=== PATIENT | female | born 1965 | race Caucasian/White ===

== ENCOUNTER 2021-09-04 13:34 | Emergency (ER) | payer SELFPAY ==
[~2021-09-04] VITALS: Ht 165.1 cm; Wt 71.4 kg
[2021-09-04 14:11] VITALS: BP 150/89
[2021-09-04] MEDS ORDERED: ACETAMINOPHEN EXTRA STRENGTH 500 MG TAB PO ONE (16:00)
[2021-09-04] MEDS ORDERED: DICYCLOMINE HCL LIQUID 20 MG, ALUMINUM HYD/MAG/SIMETHICONE 30 ML, LIDOCAINE VISCOUS 2% ... PO ONE ×3 (16:00)
[2021-09-04] MEDS ORDERED: ONDANSETRON 4 MG ODT PO ONE (16:00)
[2021-09-04] MEDS ORDERED: DICYCLOMINE HCL LIQUID 10 MG/5 ML UDC ONE (16:31)
[2021-09-04] MEDS ORDERED: ALUMINUM HYD/MAG/SIMETHICONE 30 ML UDC ONE (16:31)
[2021-09-04 16:54] LABS: BASOPHILS % (AUTO) 0.2 % (0.0-2.0); EOSINOPHILS % (AUTO) 0.4 % (0.0-4.0); HEMATOCRIT 36.5 % (36-48); HEMOGLOBIN 11.8 g/dL (12.0-16.0); LYMPHOCYTES # (AUTO) 1.5 K/uL (2.5-16.5); LYMPHOCYTES % (AUTO) 22.4 % (20.5-51.1); MEAN CORPUSCULAR HEMOGLOBIN 28 pg (27-31); MEAN CORPUSCULAR HGB CONC 32 g/dL (33-37); MEAN CORPUSCULAR VOLUME 87.7 fL (80-94); MONOCYTES # (AUTO) 0.4 K/uL (0.8-1.0); MONOCYTES % (AUTO) 5.6 % (1.7-9.3); NEUTROPHILS # (AUTO) 4.7 K/uL (1.8-7.7); NEUTROPHILS % (AUTO) 71.4 % (42.2-75.2); PLATELET COUNT (AUTO) 296 K/uL (140-450); RED BLOOD CELL COUNT(AUTO) 4.15 MIL/uL (4.20-5.40); RED CELL DISTRIBUTION WIDTH 15.6 % (11.6-13.7); WHITE BLOOD COUNT (AUTO) 6.6 K/uL (4.8-10.8)
--- NOTE | 2021-09-04 17:00 | NUR ---
56YO FEMALE PT C/O HEADACHE AND N/V/D. PT STATES VOMITING X3DAYS , HEADACHE X2 AND V/D XTODAY. PT DENIES BLOOD IN VOMIT OR DIARRHEA. PT STATES OCCASIONAL COLD SWEATS AND FEELING LETHARGIC. PT HAS HEADACHE OF 7/10 THROBBING PAIN ACROSS FOREHEAD AND DENIES NAUSEA AT THIS TIME . PT STATES SHE CANT KEEP FOOD DOWN DUE TO NAUSEA. PT HAS TAKEN PEPTOL WITH NO RELIEF. PT PRESENTS AAOX4, RESPIRATIONS EVEN AND UNLABORED. ALL VITALS WITHIN NORMAL RANGE. LIGHTS DIMMED PER PT COMFORT, BED AT LOWEST POSITION AND BED RAILS UP X1. NKA NHX
[2021-09-04 17:12] LABS: ALBUMIN 3.7 g/dL (3.4-5.0); ANION GAP 11.5 (8-16); CARBON DIOXIDE 26.8 mmol/L (21-32); CREATININE 0.5 mg/dL (0.6-1.3); POTASSIUM 4.3 mmol/L (3.5-5.1); TOTAL BILIRUBIN 0.2 mg/dL (0.0-1.0)
--- NOTE | 2021-09-04 17:15 | NUR ---
PT AMBULATORY W/ STEADY GAIT TO RESTROOM
--- NOTE | 2021-09-04 17:18 | NUR ---
PT AMBULATORY BACK TO BED
--- NOTE | 2021-09-04 18:36 | NUR ---
PT AMBULATORY TO RESTROOM
--- NOTE | 2021-09-04 19:17 | NUR ---
REPORT GIVEN TO CAROLYN OLIVAREZ. TRANSFER OF CARE AT THIS TIME
--- NOTE | 2021-09-04 20:04 | NUR ---
COVID PCR COLLECTED AND GIVEN TO LAB
[2021-09-04] MEDS ORDERED: ONDA-188 PO (20:23)
[2021-09-04] MEDS ORDERED: CIPR500T9 PO (20:23)
[2021-09-04] MEDS ORDERED: BISM262T5 PO (20:23)
[2021-09-04] MEDS ORDERED: MAG355OR2 PO (20:23)
[2021-09-04 20:35] VITALS: BP 145/89
--- NOTE | 2021-09-04 20:36 | NUR ---
Patient discharged with v/s stable. Written and verbal after care instructions given and explained. Patient alert, oriented and verbalized understanding of instructions. Ambulatory with steady gait. All questions addressed prior to discharge. ID band removed. Patient advised to follow up with PMD. Rx of PEPTO-BISMOL, CIPROFLOXACIN HCL, MAALOX MAXIMUM STRENGTH SUSP, AND ZOFRAN given. Patient educated on indication of medication including possible reaction and side effects. Opportunity to ask questions provided and answered. NOTE FOR WORK PROVIDED.
== END 2021-09-04 20:34 | disposition home or self-care (01) ==
LOC: MED 13:34
DX: K52.9 Noninfective gastroenteritis and colitis, unspecified (principal); Z20.822 Contact with and (suspected) exposure to COVID-19; R11.2 Nausea with vomiting, unspecified; R19.7 Diarrhea, unspecified; Z79.899 Other long term (current) drug therapy
CPT/HCPCS: 36415; 80053; 81002; 85025; 87635; 99285; C9803; Q0162